=== PATIENT | female | born 1990 | race Caucasian/White ===

== ENCOUNTER 2022-03-03 09:19 | Emergency (ER) | payer OTHER | END 2022-03-03 10:21 | disposition home or self-care (01) | LOC: CSHERS 09:19 | DX: L50.0 Allergic urticaria (principal); T36.8X5A Adverse effect of other systemic antibiotics, initial encounter | CPT/HCPCS: 99282 ==

== ENCOUNTER 2023-01-29 18:57 | Inpatient (IN) | payer OTHER ==
[2023-01-29 21:03] VITALS: BMI 49.6
[2023-01-29] MEDS ORDERED: HYDROcodone/Acetaminophen 5/325 mg Tablet PO PRN ×2 (22:03)
[2023-01-29] MEDS ORDERED: Lidocaine 1% (PF) 30 ML VIAL SC PRN (22:03)
[2023-01-29] MEDS ORDERED: Tranexamic Acid 1,000 MG/10 ML VIAL IVP PRN (22:03)
[2023-01-29] MEDS ORDERED: Acetaminophen 500 MG TAB PO PRN (22:03)
[2023-01-29] MEDS ORDERED: Ibuprofen 800 MG TAB PO PRN (22:03)
[2023-01-29] MEDS ORDERED: Zolpidem Tartrate 5 MG TAB PO PRN (22:03)
[2023-01-29] MEDS ORDERED: Promethazine HCl 25 MG/ML VIAL IM PRN (22:03)
[2023-01-29] MEDS ORDERED: Butorphanol Tartrate 1 MG/ML VIAL SLOW IVP PRN (22:03)
[2023-01-29] MEDS ORDERED: Carboprost 250 MCG/ML AMP IM PRN (22:03)
[2023-01-29] MEDS ORDERED: Misoprostol 200 MCG TAB PR PRN (22:03)
[2023-01-29] MEDS ORDERED: Methylergonovine 0.2 MG/ML VIAL IM PRN (22:03)
[2023-01-29] MEDS ORDERED: hydrALAZINE 20 MG/ML VIAL SLOW IVP PRN (22:03)
[2023-01-29] MEDS ORDERED: Diphenoxylate HCl/Atropine Tablet PO PRN ×2 (22:03)
[2023-01-29] MEDS ORDERED: Ondansetron PF 4 MG/2 ML Vial IVP PRN (22:03)
[2023-01-29] MEDS ORDERED: NS w/ Oxytocin 30 units 500 ML IV SCH (22:15)
[2023-01-29 22:59] LABS: Hemoglobin 10.8 g/dL (12.0-15.5); Mean Corpuscular HGB CONC 32.5 g/dL (32.0-36.0); Mean Corpuscular Hemoglobin 27.1 pg (27.0-33.0); Mean Corpuscular Volume 83.4 fl (81.6-98.3); Mean Platelet Volume 9.6 fl (7.4-10.4); Platelet Count 311 10x3/uL (150-450); RBC Distribution Width 13.5 % (11.5-14.5); Red Blood Cell (RBC) Count 3.98 10x6/uL (3.90-5.03); White Blood Cell (WBC) Count 6.9 10x3/uL (3.5-10.5)
[2023-01-29] MEDS: Misoprostol 200 MCG TAB PO PRN (23:10)
[2023-01-29 23:37] LABS: HBSAg Index 0.15 S/CO (0-0.99); Hep B Surf Ag - L&D Non-Reactive S/CO (NonReactive)
[2023-01-29 23:38] LABS: Syphilis Antibody Nonreactive (Nonreactive); Syphilis Antibody Index 0.14 S/CO (<1.00 Non-Reactive)
[2023-01-30] MEDS: Misoprostol 200 MCG TAB PO PRN ×3 (03:22→09:45)
[2023-01-30] MEDS: Lactated Ringer's 1,000 ML IV SCH ×2 (03:38→06:29)
[2023-01-30] MEDS ORDERED: Fentanyl 100 MCG/2 ML VIAL ONE ×2 (05:28→13:04)
[2023-01-30] MEDS: Fentanyl 100 MCG/2 ML VIAL SLOW IVP PRN ×3 (05:31→10:58)
[2023-01-30] MEDS ORDERED: Ketorolac Tromethamine 30 MG/ML VIAL IVP PRN (08:27)
[2023-01-30] MEDS ORDERED: Morphine 2 MG/ML VIAL SLOW IVP PRN (09:44)
[2023-01-30] MEDS ORDERED: Morphine 4 MG/ML VIAL SLOW IVP PRN (11:45)
[2023-01-30] MEDS ORDERED: Clindamycin/D5W 900 MG in Premix Bag 1 BAG IVPB SCH (12:00)
[2023-01-30] MEDS ORDERED: Lidocaine 1% PF 5 ML VIAL ONE (13:04)
[2023-01-30] MEDS ORDERED: PROPOFOL 20 ML ONE (13:04)
[2023-01-30] MEDS ORDERED: Succinylcholine 200 MG/10 ml SYRINGE FS ONE (13:26)
[2023-01-30] MEDS ORDERED: Dexamethasone 20 MG/5 ML VIAL ONE ×2 (13:34)
[2023-01-30] MEDS ORDERED: PHENYLEPHRINE-NS 100 MCG/ML 10 ML SYRINGE ONE (13:36)
[2023-01-30] MEDS ORDERED: Oxytocin 10 UNITS/ML VIAL ONE ×2 (13:37→13:44)
[2023-01-30] MEDS ORDERED: Promethazine HCl 25 MG/ML VIAL ONE (14:13)
[2023-01-30] MEDS ORDERED: HYDROcodone/Acetaminophen 5/325 mg Tablet PO PRN ×2 (16:35)
[2023-01-30] MEDS ORDERED: Measles/Mumps/Rubella 10 MCG/0.5 ML VIAL SC ONE (16:35)
[2023-01-30] MEDS ORDERED: Boostrix 0.5 ML (Tdap) VIAL (>/=7 yrs of age) IM ONE (16:35)
[2023-01-30] MEDS ORDERED: Promethazine HCl 25 MG/ML VIAL IM PRN (16:35)
[2023-01-30] MEDS ORDERED: diphenhydrAMINE 25 MG CAP PO PRN (16:35)
[2023-01-30] MEDS ORDERED: Lanolin Ointment 7 GM TUBE TOP PRN (16:35)
[2023-01-30] MEDS ORDERED: Varicella virus, LIVE 0.5 ML VIAL SC ONE (16:35)
[2023-01-30] MEDS ORDERED: Milk Of Magnesia 30 ML UDCUP PO PRN (16:35)
[2023-01-30] MEDS ORDERED: Methylergonovine 0.2 MG/ML VIAL IM PRN (16:35)
[2023-01-30] MEDS ORDERED: Preparation H Ointment 28 GM TUBE PR PRN (16:35)
[2023-01-30] MEDS ORDERED: NS w/ Oxytocin 30 units 500 ML IV SCH (16:35)
[2023-01-30] MEDS ORDERED: hydrALAZINE 20 MG/ML VIAL SLOW IVP PRN (16:35)
[2023-01-30] MEDS ORDERED: Benzocaine-Menthol 82.5 ML CAN TOP PRN (16:35)
[2023-01-30] MEDS ORDERED: Ondansetron PF 4 MG/2 ML Vial IVP PRN (16:35)
[2023-01-30] MEDS ORDERED: Bisacodyl 10 MG SUPP PR PRN (16:35)
[2023-01-30] MEDS ORDERED: Misoprostol 200 MCG TAB VAG PRN (16:35)
[2023-01-30] MEDS ORDERED: Ferrous Sulfate 325 MG TAB PO SCH (17:00)
[2023-01-30] MEDS ORDERED: Ibuprofen 800 MG TAB PO SCH (17:00)
[2023-01-30] MEDS ORDERED: Docusate 100 MG CAP PO SCH (21:00)
[2023-01-31] MEDS ORDERED: Prenatal Vitamin 1 TAB PO SCH (09:00)
== END 2023-01-30 18:45 | disposition home or self-care (01) | DRG 770 ==
LOC: CSHLD 18:57
PROVIDERS: ADMIT Obstetrics & Gynecology; ATTEND Obstetrics & Gynecology
PROC: 3E0P7VZ Introduction of Hormone into Female Reproductive, Via Natural or Artificial Opening (ICD-10-PCS; principal; 2023-01-29)
PROC: 10D17ZZ Extraction of Products of Conception, Retained, Via Natural or Artificial Opening (ICD-10-PCS; 2023-01-30)
DX: O02.1 Missed abortion (principal); E66.01 Morbid (severe) obesity due to excess calories; O99.214 Obesity complicating childbirth; Z88.8 Allergy status to other drugs, medicaments and biological substances; Z88.0 Allergy status to penicillin; Z88.2 Allergy status to sulfonamides
CPT/HCPCS: 76815; 85027; 86780; 86850; 86900; 86901; 87340; 88300; 88305; 88309; J1100; J1885; J2550; J2590; J2704; J3010; J3490

== ENCOUNTER 2024-10-23 15:14 | Day surgery (SDC) | payer OTHER ==
[2024-10-23 15:40] VITALS: BMI 53.4
== END 2024-10-23 16:35 | disposition home or self-care (01) ==
LOC: CSHLD/OP 15:14
PROVIDERS: ATTEND Obstetrics & Gynecology
DX: O24.419 Gestational diabetes mellitus in pregnancy, unspecified control (principal); Z3A.32 32 weeks gestation of pregnancy
CPT/HCPCS: 59025

== ENCOUNTER 2024-11-29 10:07 | Inpatient (IN) | payer OTHER ==
[2024-11-28 11:13] LABS: Hematocrit 32.4 % (34.9-44.5); Hemoglobin 10.1 g/dL (12.0-15.5); Mean Corpuscular HGB CONC 31.2 g/dL (32.0-36.0); Mean Corpuscular Volume 77.1 fL (81.6-98.3); Mean Platelet Volume 9.9 fL (7.4-10.4); Platelet Count 297 10x3/uL (150-450); RBC Distribution Width 13.2 % (11.5-14.5); White Blood Cell (WBC) Count 6.17 10x3/uL (3.5-10.5)
[2024-11-28 11:50] LABS: HBsAg Index 0.25 S/CO (0-0.99); HIV (1/2) Antibody/Antigen Non-Reactive (NonReactive); HIV 1/2 INDEX 0.11 S/CO (<1.00); Hep B Surf Ag Non-Reactive S/CO (NonReactive)
[2024-11-28 11:51] LABS: Syphilis Antibody Nonreactive (Nonreactive); Syphilis Antibody Index 0.13 S/CO (<1.00 Non-Reactive)
[~2024-11-29 10:07] MED LIST: Bicitra 30 ML UDCUP PO PRN; CEFAZOLIN 2 GM in Sodium Chloride 0.9% 100 ML IVPB SCH; Famotidine/PF 20 mg/2ml Vial SLOW IVP PRN
[2024-11-29 10:49] VITALS: BMI 53.0
[2024-11-29] MEDS ORDERED: Bicitra 30 ML UDCUP PO PRN (12:07)
[2024-11-29] MEDS ORDERED: Promethazine HCl 25 MG/ML VIAL IM PRN (12:09)
[2024-11-29] MEDS ORDERED: Ondansetron PF 4 MG/2 ML Vial IVP PRN ×3 (12:09→15:34)
[2024-11-29] MEDS ORDERED: hydrALAZINE 20 MG/ML VIAL SLOW IVP PRN ×2 (12:09→13:37)
[2024-11-29] MEDS: Famotidine/PF 20 mg/2ml Vial SLOW IVP PRN (12:14)
[2024-11-29] MEDS: CEFAZOLIN 2 GM in Sodium Chloride 0.9% 100 ML IVPB SCH (12:15)
[2024-11-29] MEDS ORDERED: Oxytocin 30 units/NS 500 ML 500 ML IV SCH (12:15)
[2024-11-29] MEDS ORDERED: Boostrix 0.5 ML (Tdap) VIAL (>/=7 yrs of age) IM ONE (13:37)
[2024-11-29] MEDS ORDERED: diphenhydrAMINE 25 MG CAP PO PRN (13:37)
[2024-11-29] MEDS ORDERED: Lanolin Ointment 7 GM TUBE TOP PRN (13:37)
[2024-11-29] MEDS ORDERED: Bisacodyl 10 MG SUPP PR PRN (13:37)
[2024-11-29] MEDS ORDERED: HYDROcodone/Acetaminophen 5/325 mg Tablet PO PRN (13:37)
[2024-11-29] MEDS ORDERED: Lactated Ringer's 1,000 ML IV SCH (13:45)
[2024-11-29] MEDS: Morphine PF 10 MG/10 ML VIAL ONE (15:18)
[2024-11-29] MEDS: fentaNYL 50 mcg/mL 1 mL Vial ONE (15:18)
[2024-11-29] MEDS: Oxytocin 10 UNITS/ML VIAL ONE (15:19)
[2024-11-29] MEDS: ePHEDrine Sulfate 50 MG/10 ML VIAL ONE (15:19)
[2024-11-29] MEDS: Phenylephrine 40 MG/NS 250 ML 250 ML ONE (15:19)
[2024-11-29] MEDS: CEFAZOLIN 2 GM VIAL ONE (15:19)
[2024-11-29] MEDS: Ondansetron PF 4 MG/2 ML Vial ONE (15:19)
[2024-11-29] MEDS ORDERED: diphenhydrAMINE 50 MG/ML VIAL IVP PRN (15:34)
[2024-11-29] MEDS ORDERED: Naloxone HCl 0.4 mg/ml Vial IVP PRN ×2 (15:34)
[2024-11-29] MEDS ORDERED: Meperidine HCl/PF 25 MG (1 mL) VIAL SLOW IVP PRN (15:34)
[2024-11-29] MEDS ORDERED: Naloxone HCl 0.4 mg/ml Vial IV PRN (15:34)
[2024-11-29] MEDS ORDERED: Moisturizing Cream (Eucerin) 113 GM JAR TOP PRN (15:34)
[2024-11-29] MEDS ORDERED: fentaNYL 50 mcg/mL 1 mL Vial SLOW IVP PRN (15:34)
[2024-11-29] MEDS ORDERED: Communication Order-Pharmacy FS SCH (15:45)
[2024-11-29] MEDS: Ketorolac Tromethamine 30 MG (1 mL) VIAL IVP SCH (16:27)
[2024-11-29] MEDS: Ondansetron PF 4 MG/2 ML Vial IVP PRN (18:09)
[2024-11-29] MEDS: Meperidine HCl/PF 25 MG (1 mL) VIAL IM SCH (18:09)
[2024-11-29] MEDS: Promethazine HCl 25 MG/ML VIAL IM PRN (19:07)
[2024-11-29] MEDS: Ibuprofen 800 MG TAB PO SCH (19:38)
[2024-11-29] MEDS: Docusate 100 MG CAP PO SCH (21:28)
[2024-11-29] MEDS: Ketorolac Tromethamine 30 MG (1 mL) VIAL IVP PRN (22:54)
[2024-11-30 05:08] LABS: Hematocrit 25.7 % (34.9-44.5); Hemoglobin 7.9 g/dL (12.0-15.5)
[2024-11-30] MEDS: HYDROcodone/Acetaminophen 10/325 mg Tablet PO PRN (11:11)
[2024-11-30] MEDS: Gentamicin Sulfate 120 MG in Premix 1 BAG IVPB SCH (11:12)
[2024-11-30] MEDS: Clindamycin/D5W 900 MG in Premix 1 BAG IVPB SCH ×2 (13:50→21:45)
[2024-11-30] MEDS: Ibuprofen 800 MG TAB PO SCH (21:38)
[2024-12-01] MEDS: Iron Polysaccharides Complex 150 MG CAP PO SCH ×2 (09:15→09:28)
[2024-12-02 07:31] VITALS: BP 137/79; TEMP 98.5
[2024-12-03] MEDS ORDERED: Prenatal Vitamin 1 TAB PO SCH (09:00)
== END 2024-12-02 13:05 | disposition home or self-care (01) | DRG 788 ==
LOC: CSHLD 10:07 → CSHPP 17:10
PROVIDERS: ADMIT Obstetrics & Gynecology; ATTEND Obstetrics & Gynecology
PROC: 10D00Z1 Extraction of Products of Conception, Low, Open Approach (ICD-10-PCS; principal; 2024-11-29)
DX: O13.4 Gestational [pregnancy-induced] hypertension without significant proteinuria, complicating childbirth (principal); O34.211 Maternal care for low transverse scar from previous cesarean delivery; O90.81 Anemia of the puerperium; D64.89 Other specified anemias; O99.214 Obesity complicating childbirth; O32.1XX0 Maternal care for breech presentation, not applicable or unspecified; Z37.0 Single live birth; Z88.8 Allergy status to other drugs, medicaments and biological substances; Z88.0 Allergy status to penicillin; Z79.899 Other long term (current) drug therapy; Z3A.38 38 weeks gestation of pregnancy
CPT/HCPCS: 36415; 51702; 85014; 85018; 85027; 86780; 86850; 86900; 86901; 87340; 87389; J1580; J1885; J2175; J2274; J2405; J2550; J2590; J3010; J3490